=== PATIENT | male | born 1960 | race Caucasian/White ===

== ENCOUNTER → 2016-09-06 | Outpatient (CLI) | payer OTHER ==
[~2016-09-06] MED LIST: ADVAIR 100/501 DISK IH; ALPRAZOLAM0.25 MG PO; ASPIR-TRIN325 M1 PO; ASPIRIN81 M2 PO; CARBAMAZEPINE200 MG PO; CENTRUM SILVER1 EAC1 PO; FLEXERIL10 MG PO; LOPRESSOR25 MG PO; LORAZEPAM0.5 MG PO; LORTAB 5-325 M1 EACH PO; MEDROL DOSEPAK4 MG PO; OMEPRAZOLE40 M1 PO; PAROXETINE HCL20 MG PO; PRAVASTATIN SOD40 MG PO; PREVACID30 MG PO; PRILOSEC40 MG PO; TEGRETOL200 MG PO; TENORETIC 501 TABLET PO; XANAX0.5 MG PO; ZESTRIL,PRINIVI10 MG PO
== END | disposition home or self-care (01) ==
LOC: RAD 10:34
DX: M50.322 Other cervical disc degeneration at C5-C6 level (principal); M50.323 Other cervical disc degeneration at C6-C7 level; M48.02 Spinal stenosis, cervical region
CPT/HCPCS: 72126

== ENCOUNTER 2017-01-09 07:15 | Day surgery (SDC) | payer OTHER ==
[~2017-01-09] VITALS: Ht 172.7 cm; Wt 83.9 kg
[~2017-01-09 07:15] MED LIST changes: +LISINOPRIL10 MG PO
== END 2017-01-09 10:28 | disposition home or self-care (01) ==
LOC: PAIN 07:15 → SDC 08:00 → PAIN 08:00
DX: M47.812 Spondylosis without myelopathy or radiculopathy, cervical region (principal); F41.9 Anxiety disorder, unspecified; M12.88 Other specific arthropathies, not elsewhere classified, other specified site; M79.1 Myalgia; M50.20 Other cervical disc displacement, unspecified cervical region; I10 Essential (primary) hypertension; K21.9 Gastro-esophageal reflux disease without esophagitis; B18.2 Chronic viral hepatitis C; I25.10 Atherosclerotic heart disease of native coronary artery without angina pectoris; Z95.5 Presence of coronary angioplasty implant and graft; I25.2 Old myocardial infarction; G40.909 Epilepsy, unspecified, not intractable, without status epilepticus; J45.909 Unspecified asthma, uncomplicated; Z88.8 Allergy status to other drugs, medicaments and biological substances
CPT/HCPCS: 93005; J1030; J2250; J3010; S0020

== ENCOUNTER 2017-01-16 07:16 | Day surgery (SDC) | payer OTHER ==
[~2017-01-16] VITALS: Ht 172.7 cm; Wt 83.9 kg
[~2017-01-16 07:16] MED LIST changes: +LIPITOR40 MG PO; +LO-DOSE ASPIRIN81 M2 PO; +MOBIC7.5 MG PO; +NEURONTIN100 MG PO; +NITROSTAT0.4 MG SL; +PAXIL40 MG PO; +PROAIR RESPICL90 MCG IH
== END 2017-01-16 09:06 | disposition home or self-care (01) ==
LOC: PAIN 07:16 → SDC 08:00 → PAIN 08:00
DX: M50.11 Cervical disc disorder with radiculopathy, high cervical region (principal); M54.2 Cervicalgia; M12.88 Other specific arthropathies, not elsewhere classified, other specified site; M79.1 Myalgia; I10 Essential (primary) hypertension; J45.909 Unspecified asthma, uncomplicated; K21.9 Gastro-esophageal reflux disease without esophagitis; E78.5 Hyperlipidemia, unspecified; F41.9 Anxiety disorder, unspecified; G40.909 Epilepsy, unspecified, not intractable, without status epilepticus; I25.2 Old myocardial infarction; Z95.5 Presence of coronary angioplasty implant and graft; F17.210 Nicotine dependence, cigarettes, uncomplicated; Z79.82 Long term (current) use of aspirin; Z79.899 Other long term (current) drug therapy
CPT/HCPCS: J1030; J2250; J3010; S0020

== ENCOUNTER 2017-05-20 11:54 | Day surgery (SDC) | payer OTHER ==
[~2017-05-20] VITALS: Ht 172.7 cm; Wt 77.1 kg
[~2017-05-20 11:54] MED LIST changes: +STIOLTO RESPIMAT4 GM IH; +XANAX1 MG PO
== END 2017-05-20 13:22 | disposition home or self-care (01) ==
LOC: PAIN 11:54 → SDC 12:30 → PAIN 13:22
DX: M50.11 Cervical disc disorder with radiculopathy, high cervical region (principal); M48.02 Spinal stenosis, cervical region; M79.1 Myalgia; I44.0 Atrioventricular block, first degree; B18.2 Chronic viral hepatitis C; K21.9 Gastro-esophageal reflux disease without esophagitis; I10 Essential (primary) hypertension; I25.10 Atherosclerotic heart disease of native coronary artery without angina pectoris; F41.9 Anxiety disorder, unspecified; J44.9 Chronic obstructive pulmonary disease, unspecified; E78.5 Hyperlipidemia, unspecified; G40.909 Epilepsy, unspecified, not intractable, without status epilepticus; I25.2 Old myocardial infarction; F17.200 Nicotine dependence, unspecified, uncomplicated; F12.90 Cannabis use, unspecified, uncomplicated; F10.10 Alcohol abuse, uncomplicated; Z79.82 Long term (current) use of aspirin
CPT/HCPCS: J1030; J2250; J3010; S0020

== ENCOUNTER 2017-05-27 11:46 | Day surgery (SDC) | payer OTHER ==
[~2017-05-27] VITALS: Ht 172.7 cm; Wt 77.1 kg
== END 2017-05-27 14:00 | disposition home or self-care (01) ==
LOC: PAIN 11:46 → SDC 12:30 → PAIN 14:00
DX: M50.11 Cervical disc disorder with radiculopathy, high cervical region (principal); M54.2 Cervicalgia; G89.29 Other chronic pain; M48.02 Spinal stenosis, cervical region; M79.1 Myalgia; I25.10 Atherosclerotic heart disease of native coronary artery without angina pectoris; F41.8 Other specified anxiety disorders; B18.2 Chronic viral hepatitis C; J44.9 Chronic obstructive pulmonary disease, unspecified; K21.9 Gastro-esophageal reflux disease without esophagitis; E78.5 Hyperlipidemia, unspecified; I10 Essential (primary) hypertension; G40.909 Epilepsy, unspecified, not intractable, without status epilepticus; F17.200 Nicotine dependence, unspecified, uncomplicated; I25.2 Old myocardial infarction; F12.90 Cannabis use, unspecified, uncomplicated; Z95.5 Presence of coronary angioplasty implant and graft; Z79.891 Long term (current) use of opiate analgesic
CPT/HCPCS: J1030; J2250; J3010; S0020